=== PATIENT | female | born 1995 | race Two or more races ===

== ENCOUNTER 2024-12-26 08:43 | Emergency (ER) | payer MEDICARE, MEDICAID, SELFPAY ==
[2024-12-26] VITALS (8 sets, daily range): BP systolic 105–128; BP diastolic 52–86; PULSE 69–94; RESP 15–18; TEMP 36.4–39.4; O2SAT 96–98; BMI 41.8
--- NOTE | 2024-12-26 08:58 | XR_ITS ---
Examination: CT abdomen and pelvis without contrast. Coronal 3-D reconstructions. Sagittal 2-D reconstructions. Date and time of exam:December 26, 2024 1107 hours INDICATIONS: Left-sided abdominal pain and nausea beginning one week ago CTDI: vol (mGy): 14.6 DLP: (mGycm): 881 Technique: Axial images of the abdomen have been obtained, 3 mm slice thickness Intravenous contrast material has not been administered. Low dose protocols were performed. One or more of the following dose reduction techniques were used; automated exposure control, adjustment of the mA and/or KV according to patient size, use of iterative reconstruction technique. Findings: Hepatomegaly 21 cm with diffuse fatty infiltration throughout the liver No gallstones No splenic pancreatic or adrenal mass lesion 2 mm 1 mm lower pole left renal calculi Minimal left hydronephrosis, 8 mm proximal left ureteral calculus No bowel obstruction No pericecal inflammatory change No pelvic mass Minimal thickening urinary bladder wall Congenital fusion L2-L3 IMPRESSION: Left renal calculi Minimal left hydronephrosis, 8 mm proximal left ureteral calculus
--- NOTE | 2024-12-26 08:59 | EDNOTE_ITS ---
<Statement entered by Dionna So MD - 01/01/25 06:45> As co-signing physician, I was present and available for consult prn. I concur with the plan and care as documented by the midlevel provider. ED Abdominal Pain RME/HPI General Chief Complaint: Abdominal Pain Stated complaint: ABD PAIN X 1 WK; PAIN 9/10 Time seen by provider: 12/26/24 10:16 Arrival date/time: 12/26/24 08:43 29-year-old female with no known medical history presents to the emergency room with a chief complaint of left lower quadrant abdominal pain and tenderness x 1 week Source: patient Mode of arrival: ambulatory Limitations: no limitations Related Data Previous Rx's ?Medication ?Instructions ?Recorded acetaminophen 300 mg-codeine 15 mg 1 tab PO Q12H PRN p ain #14 tabs 01/25/24 tablet metronidazole 500 mg tablet 500 mg PO Q12H #14 tabs Allergies Allergy/AdvReac Type Severity Reaction Status Date / Time No Known Allergies Allergy Verified 12/26/24 08:46 Review of Systems Review of Systems Systems Reviewed: All systems reviewed, normal except as documented Constitutional Constitutional: Reports system reviewed and no additional complaints, except as documented, Denies fatigue, Denies fever(s), Denies headache(s) and Denies weakness Eyes Eyes: Reports system reviewed and no additional complaints, except as documented, Denies blurry vision and Denies change in vision ENT Ears, Nose, Mouth, and Throat: Reports system reviewed and no additional complaints, except as documented, Denies otalgia, Denies headache(s), Denies nasal congestion, Denies throat swelling and Denies vertigo Cardiovascular Cardiovascular: Reports system reviewed and no additional complaints, except as documented, Denies chest pain, Denies dyspnea and Denies dyspnea on exertion Respiratory Respiratory: Reports system reviewed and no additional complaints, except as documented, Denies chest congestion, Denies cough, Denies dyspnea, Denies dyspnea on exertion and Denies wheezing Gastrointestinal Gastrointestinal: Reports system reviewed and no additional complaints, except as documented, Denies abdominal pain, Denies cramping, Denies nausea and Denies vomiting Genitourinary Genitourinary: Reports system reviewed and no additional complaints, except as documented Musculoskeletal Musculoskeletal: Reports system reviewed and no additional complaints, except as documented and Denies back pain Integumentary/Breasts Skin/Breast: Reports system reviewed and no additional complaints, except as documented and Denies wounds Neurologic Neurologic: Reports system reviewed and no additional complaints, except as documented, Denies confusion, Denies headache(s), Denies lack of coordination, Denies vertigo and Denies weakness Psychiatric Psychiatric: Reports system reviewed and no additional complaints, except as documented, Denies anxiety, Denies confusion, Denies depression, Denies paranoia, Denies suicidal ideation and Denies tactile hallucinations Endocrine Endocrine: Reports system reviewed and no additional complaints, except as documented and Denies fatigue Hematologic/Lymphatic Hematologic/Lymphatic: Reports system reviewed and no additional complaints, except as documented and Denies lymphadenopathy Allergic/Immunologic Allergic/Immunologic: Reports system reviewed and no additional complaints, except as documented, Denies throat swelling, Denies urticaria and Denies wheezing ED Exam General Limitations: Present no limitations General appearance: Present alert and in no apparent distress Head Head exam: Present atraumatic Eye Eye exam: Present normal appearance, PERRL and EOMI ENT ENT exam: Present normal exam, normal oropharynx and mucous membranes moist Neck Neck exam: Present normal inspection, full ROM and trachea midline Chest Chest inspection: Present normal inspection and symmetric chest wall rise Respiratory Respiratory exam: Present normal lung sounds bilaterally Cardiovascular Cardiovascular exam: Present regular rate, normal rhythm and normal heart sounds Abdominal Exam Abdominal exam: Present soft, tenderness and normal bowel sounds; Absent Cordova's sign or tenderness at McBurney's Point Abdominal tenderness: Present LLQ and mild Extremities Exam Extremities exam: Present normal inspection and full ROM Back Exam Back exam: Present normal inspection and full ROM Neurological Exam Neurological exam: Present alert, oriented X3 and CN II-XII intact Psychiatric Psychiatric exam: Present normal affect and normal mood Skin Skin exam: Present warm, dry, intact and normal color Course Quality Measures none Orders Category Date Time Status In and Out Catheter X1 Care 12/26/24 12:44 Active Referral - Tax Manager Stat Cons 12/26/24 12:[address] abdomen pelvis wo con Stat Exams 12/26/24 08:58 Completed CBC Stat Lab 12/26/24 09:28 Completed CMP [Comprehensive Metabolic Panel] Stat Lab 12/26/24 09:28 Completed Drug Screen,Urine Stat Lab 12/26/24 09:35 Completed HCG Qualitative,Urine Stat Lab 12/26/24 09:35 Completed Lipase Stat Lab 12/26/24 09:28 Completed UA [Urinalysis] Stat Lab 12/26/24 09:35 Completed UA [Urinalysis] Stat Lab 12/26/24 13:30 Completed Urine Culture Stat Lab 12/26/24 09:35 Received HYDROcodone*/APAP 5/325 [[place] 5/325] Med 12/26/24 08:58 Discontinued 1 tab PO X1 ONE Ketorolac Inj [Toradol Inj] Med 12/26/24 12:07 Discontinued 30 mg IM X1 ONE Metoclopramide [Reglan] Med 12/26/24 12:08 Discontinued 10 mg PO X1 ONE Morphine Inj Med 12/26/24 15:03 Discontinued 4 mg IVP X1 ONE Ondansetron Inj [Zofran Inj] Med 12/26/24 15:03 Discontinued 4 mg IVP X1 ONE Ondansetron Odt [Zofran Odt] Med 12/26/24 08:58 Discontinued 4 mg PO X1 ONE Piper/Tazo 3.375 gm Premix [Zosyn] Med 12/26/24 15:03 Discontinued 3.375 gm in 50 ml IV X1 Sodium Chloride 0.9% 1000 ml [Ns] 1,000 ml Med 12/26/24 15:04 Discontinued IV 999 mls/hr mg Hyd/Al Hyd/Robin Susp [Maalox Susp] Med 12/26/24 08:58 Discontinued 30 ml PO X1 ONE Vital Signs Vital signs: Vital Signs Temperature 99.0 F 12/26/24 08:51 Pulse Rate 84 12/26/24 08:51 Respiratory Rate 16 12/26/24 08:51 Blood Pressure 122/84 12/26/24 08:51 Pulse Oximetry (%) 97 12/26/24 08:51 Oxygen Delivery Method Room Air 12/26/24 08:51 Abdominal Pain MDM MDM Narrative MDM Narrative:: 29-year-old female with no known medical history presents to the emergency room with a chief complaint of left lower quadrant abdominal pain and tenderness x 1 week Patient is hemodynamically stable and in no apparent distress. The patient is afebrile not tachycardic not tachypneic Physical examination shows left CVA tenderness with palpation. The patient also has tenderness to the left lower quadrant with palpation. There is no Cordova sign and there is negative tenderness to McBurney's point A CT of the abdomen and pelvis was completed and found an 8 mm proximal left ureteral stone. The patient has still has a urinary tract infection. I spoke to my attending physician who recommended transferring the patient for an obstructing stone. I spoke to Dr. Marroquin a urologist at [facility] who accepted the patient for transfer. I then spoke to the hospitalist Dr. Diez who will admit the patient to a [facility] bed. The patient was given antibiotics and pain medication prior to transfer I educated the patient and told her that she will be getting transferred to hospital with urology services. The patient accepted Patient data External records reviewed:: [facility] previous records Clinical information provided by:: patient Social determinants that could affect healthcare access:: none Patient has the following chronic illnesses:: No chronic illness How is presenting disease/condition affected by chronic disease/condition?: no chronic disease Evaluation data The following diagnostics were reviewed and interpreted by me:: lab results and radiology exam(s) Lab and/or radiology exams considered but not ordered:: Labs and radiology exams considered and ordered Interpretation Summary: CT abdomen and pelvis-Findings: Hepatomegaly 21 cm with diffuse fatty infiltration throughout the liver No gallstones No splenic pancreatic or adrenal mass lesion 2 mm 1 mm lower pole left renal calculi Minimal left hydronephrosis, 8 mm proximal left ureteral calculus No bowel obstruction No pericecal inflammatory change No pelvic mass Minimal thickening urinary bladder wall Congenital fusion L2-L3 IMPRESSION: Left renal calculi Minimal left hydronephrosis, 8 mm proximal left ureteral calculus Medications / Prescriptions Medications or Prescriptions considered but not ordered:: Medication given Medication administrations:: Medication Administration History Discontinued Medications Hydrocodone Bitart/Acetaminophen (Hydrocodone/Apap 5/325 Tablet) 1 tab PO X1 ONE Stop: 12/26/24 08:59 Last Admin: 12/26/24 09:42 Dose: 1 tab Documented By: Al Hydrox/Mg Hydrox/Simethicone (Mg Hyd/Al Hyd/Robin (Maalox Reg) Susp 30 Ml Udc) 30 ml PO X1 ONE Stop: 12/26/24 08:59 Last Admin: 12/26/24 09:43 Dose: 30 ml Documented By: Piperacillin/Tazobactam/Dextrose (Zosyn) 3.375 gm in 50 mls @ 100 mls/hr IV X1 ONE Stop: 12/26/24 15:32 Last Admin: 07/30/25 16:27 Dose: 100 mls/hr Documented By: DAMIAN Sodium Chloride (Ns) 1,000 mls @ 999 mls/hr IV .Q1H1M ONE Stop: 12/26/24 16:04 Last Admin: 12/26/24 16:27 Dose: 999 mls/hr Documented By: DAMIAN Ketorolac Tromethamine (Ketorolac Inj 60 Mg/2 Ml Vial) 30 mg IM X1 ONE Stop: 12/26/24 12:08 Last Admin: 12/26/24 12:19 Dose: 30 mg Documented By: Metoclopramide HCl (Metoclopramide 5 Mg Tablet) 10 mg PO X1 ONE Stop: 12/26/24 12:09 Last Admin: 12/26/24 12:20 Dose: 10 mg Documented By: Morphine Sulfate (Morphine Sulf Inj 10 Mg/Ml Vial) 4 mg IVP X1 ONE Stop: 12/26/24 15:04 Last Admin: 12/26/24 16:30 Dose: 4 mg Documented By: DAMIAN Ondansetron HCl (Ondansetron Odt 4 Mg Tabrap) 4 mg PO X1 ONE; Protocol Stop: 12/26/24 08:59 Last Admin: 12/26/24 09:18 Dose: 4 mg Documented By: Ondansetron HCl (Ondansetron Inj 2 Mg/Ml Inj 2 Ml) 4 mg IVP X1 ONE; Protocol Stop: 12/26/24 15:04 Last Admin: 12/26/24 16:30 Dose: 4 mg Documented By: DAMIAN Medication given Consultations Consultation(s) initiated? (list below): Yes Consultation #1 (Physician, Specialty, Details): Dr. Martinez urologist at [facility] Time: 16:00 Diagnosis Differential diagnosis abdominal pain: abdominal pain, acute appendicitis, constipation, gastroenteritis and small bowel obstruction Most likely diagnosis given after review of the tests above:: Urinary tract infection/ureteral calculi Admission Indicated Admission indicated?: not indicated Admission Request Was there a request for admission?: No Disposition Plan Disposition Plan: Transfer (The patient will be transferred to [facility]. The accepting urologist was and the accepting hospitalist was Dr. Hernandez) Discharge Plan Plan Patient Disposition: [facility] Facility Pt Being Transferred to: [facility] Service Needed for Transfer: Urology Prescriptions/Referrals Prescriptions/Med Rec: No Action metronidazole 500 mg tablet 500 mg PO Q12H Qty: 14 0RF acetaminophen-codeine 300-15 mg tablet 1 tab PO Q12H PRN (Reason: pain) Qty: 14 0RF Referrals: Tracey Abel PA-C [Primary Care Provider] - In 1 week Problem List Clinical Impression: Calculus of proximal left ureter, Urinary tract infection, Hydronephrosis Patient/Caregiver Discharge Instructions Education Materials: ED CYSTITIS Female Adult Print Language: Kiswahili Stand Alone Forms: Mariola Award Info., Patient Portal Info Letter
[2024-12-26] MEDS: ONDANSETRON ODT 4 MG TABRAP PO (09:18)
[2024-12-26 09:37] LABS: Basophils # (Auto) 0.0 Thou/mm3 (0.0-0.2); Basophils % (Auto) 0 % (0-2.5); Eosinophils # (Auto) 0.1 Thou/mm3 (0.0-0.5); Eosinophils % (Auto) 1 % (0-10); Hematocrit 41.2 % (36.0-46.0); Hemoglobin 14.3 g/dL (12.0-16.0); Immature Granulocytes Auto 0.06 Thou/mm3 (0.00-0.00); Lymphocytes # (Auto) 1.5 Thou/mm3 (1.0-4.8); Lymphocytes % (Auto) 11 % (10-50); Mean Corpuscular HGB Conc 34.7 g/dl (31.0-37.0); Mean Corpuscular Hemoglobin 28.9 pg (25.0-35.0); Mean Corpuscular Volume 83 fL (80-100); Monocytes # (Auto) 0.4 Thou/mm3 (0.0-0.8); Monocytes % (Auto) 3 % (0-12); Neutrophils # (Auto) 11.1 Thou/mm3 (1.8-7.7); Neutrophils % (Auto) 84 % (37-80); Nucleated Red Blood Cell # 0.00 Thou/mm3 (0.00-0.00); Nucleated Red Blood Cell % 0 /100 WBC (0); Platelet Count 233 Thou/mm3 (140-440); RDW Standard Deviation 38.1 fL (36.4-46.3); Red Blood Count 4.94 Miln/mm3 (4.00-5.20); White Blood Count 13.3 Thou/mm3 (3.6-11.0)
[2024-12-26] MEDS: HYDROcodone/APAP 5/325 TABLET 1 TAB PO (09:42)
[2024-12-26] MEDS: MG HYD/AL HYD/SIME (Maalox Reg) SUSP 30 ML UDC PO (09:43)
[2024-12-26 09:52] LABS: Alanine Aminotransferase 26 U/L (10-49); Albumin, Serum 4.5 gm/dL (3.5-5.0); Albumin/Globulin Ratio 1.6 (1.2-2.2); Alkaline Phosphatase 94 U/L (46-116); Anion Gap 9 (7-16); Aspartate Amino Transferase 27 U/L (0-34); BUN/Creatinine Ratio 10 Ratio (12-20); Bilirubin,Total 0.6 mg/dL (0.3-1.2); Blood Urea Nitrogen 8 mg/dL (9-23); Calcium 9.1 mg/dL (8.3-10.6); Calcium (Corrected) 9.1 mg/dL (8.5-10.1); Carbon Dioxide 27.7 mMol/L (20.0-31.0); Chloride 105 mMol/L (98-107); Creatinine (Component) 0.8 mg/dL (0.6-1.3); Estimated Creatinine Clearance 124.0 mL/min (>60); Globulin 2.8 gm/dL (2.3-3.5); Glucose 103 mg/dL (74-106); Lipase 24 U/L (12-53); Osmolality,Calculated 281 (275-295); Potassium 4.1 mMol/L (3.4-5.1); Sodium 142 mMol/L (136-145); Total Protein 7.3 gm/dL (5.7-8.2); eGFR > 60 See Note
[2024-12-26 09:52] LABS: Collection Type, Urine Clean Catch
[2024-12-26 10:12] LABS: Bacteria,Urine 4+; Bilirubin,Urine Negative (Negative); Blood,Urine 3+ (Negative); Clarity,Urine Turbid (Clear/Hazy); Color,Urine Yellow (Lt Yel-Yel); Glucose, Urine Negative (Negative); Ketones,Urine Negative (Negative); Leukocyte Esterase,Urine Positive (Negative); Nitrite,Urine Positive (Negative); PH,Urine 5.5 (5.0-7.0); Protein,Urine 1+ (Neg - Trace); RBC,Urine 48 /hpf (0-3); Specific Gravity,Urine 1.031 (1.001-1.035); Squamous Epithelial Cell,Urine 29 /hpf (0-5); Urobilinogen,Urine Negative mg/dL (0.0-1.0); WBC,Urine 62 /hpf (0-5)
[2024-12-26 10:14] LABS: Amphetamine/Methamp Scrn,U Negative (Negative); Barbiturate Screen,Urine Negative (Negative); Benzodiazepines Screen,Urine Negative (Negative); Benzoylecgonine Screen, Ur Negative (Negative); Budding Yeast,Urine Absent; Fentanyl Screen,Urine Negative (Negative); Opiate Screen,Urine Negative (Negative); THC Screen,Urine Negative (Negative)
[2024-12-26 10:54] LABS: HCG Qualitative,Urine Negative
[2024-12-26] MEDS: KETOROLAC INJ 60 MG/2 ML VIAL 30 MG IM (12:19)
[2024-12-26] MEDS: METOCLOPRAMIDE 5 MG TABLET 10 MG PO (12:20)
--- NOTE | 2024-12-26 12:41 | PC.CM ---
Addendum entered by Yazmin Tarango RN 12/26/24 20:01: Patient accepted to [facility] Patient will go to room [address] 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 I handed packet to ED charge nurse. Addendum entered by Yazmin Tarango RN 12/26/24 16:37: I received a call from Jono transfer nurse with [facility] in [place]. She states DR. Zaire Martinez urologist has accepted patient. Jono states she will reach out to a hospitalist to have them accept patient. She states once they do that then they can look for a bed. She states she will call me once that happens. Packet started and CD made. Addendum entered by Yazmin Tarango RN 12/26/24 15:17: 1515 I received a call back from Alondra rehman with [facility] [phone]. I provided her with a detailed report. She was going to provide information to her urologist and then get back to me. Addendum entered by Yazmin Tarango RN 12/26/24 15:05: 1450 I called and initiated transfer with [facility]. I spoke to transfer nurse Jono and I faxed over information. Jono wanted to speak to Bhanu so I conference called and they spoke to each other. Addendum entered by Yazmin Tarango RN 12/26/24 14:49: 1420 I spoke to Valerie at [facility] and presented information on patient. She states she will have a nurse call me back for more detailed information. Addendum entered by Yazmin Tarango RN 12/26/24 14:44: 1400 [facility] called me and they declined patient due to capacity. I faxed information to [facility]. Addendum entered by Yazmin Tarango RN 12/26/24 13:13: I contacted [facility] and I spoke to Brittney. I faxed over information. Original Note: 1203 I received a referral to transfer patient for obstructing 8mm urethal stone. Patient needs urology.
[2024-12-26 13:35] LABS: Collection Type, Urine Catheter
[2024-12-26 13:45] LABS: Bacteria,Urine 4+; Bilirubin,Urine Negative (Negative); Blood,Urine 3+ (Negative); Clarity,Urine Turbid (Clear/Hazy); Color,Urine Yellow (Lt Yel-Yel); Glucose, Urine Negative (Negative); Ketones,Urine Negative (Negative); Leukocyte Esterase,Urine Positive (Negative); Nitrite,Urine Positive (Negative); PH,Urine 6.0 (5.0-7.0); Protein,Urine 1+ (Neg - Trace); RBC,Urine 17 /hpf (0-3); Specific Gravity,Urine 1.032 (1.001-1.035); Squamous Epithelial Cell,Urine 5 /hpf (0-5); Urobilinogen,Urine Negative mg/dL (0.0-1.0); WBC,Urine 56 /hpf (0-5)
[2024-12-26] MEDS: SODIUM CHLORIDE 0.9% 1000 ML 1,000 ML 999 ML IV (16:27)
[2024-12-26] MEDS: PIPER/TAZO 3.375 GM PREMIX 3.375 GM/50 ML BAG IV (16:27)
[2024-12-26] MEDS: MORPHINE SULF INJ 10 MG/ML VIAL 4 MG IVP (16:30)
[2024-12-26] MEDS: ONDANSETRON INJ 2 MG/ML INJ 2 ML 4 MG IVP (16:30)
[2024-12-26] MEDS: ACETAMINOPHEN 325 MG TABLET 650 MG PO (21:31)
--- NOTE | 2025-01-25 17:14 | PD.ADDPROG ---
Addendum Progress Note Addendum Date of report being addended: 12/25/24 Narrative: An In-N-Out catheter procedure was ordered completed by the nurse on 12/25/2024 for the patient
== END 2024-12-26 21:35 | disposition short-term general hospital (02) ==
PROVIDERS: Nurse Practitioner Family; Emergency Provider Emergency Medicine; PCP Physician Assistant
DX: N13.6 Pyonephrosis (principal); Z75.1 Person awaiting admission to adequate facility elsewhere
CPT/HCPCS: 51701; 36415; 74176; 80053; 80307; 81001; 81025; 83690; 85025; 87077; 87086; 87186; 96365; 96372; 96375; 99283; J1885; J2270; J2405; J2543; J7030; Q0162; A9270

== ENCOUNTER 2025-02-27 05:37 | Emergency (ER) | payer MEDICARE, MEDICAID, SELFPAY ==
[2025-02-27 05:37] VITALS: BP 119/80; PULSE 74; RESP 18; TEMP 37; O2SAT 98
[2025-02-27 06:14] VITALS: BMI 38.5
[2025-02-27 06:17] VITALS: BP 119/67; PULSE 65; RESP 19; TEMP 36.3; O2SAT 95
--- NOTE | 2025-02-27 06:57 | EDNOTE_ITS ---
ED Abdominal Pain RME/HPI General Chief Complaint: Abdominal Pain Stated complaint: LEFT FLANK PAIN Time seen by provider: 02/27/25 06:12 Arrival date/time: 02/27/25 05:37 Source: patient Limitations: no limitations RME / HPI RME / HPI narrative: 29-year-old female here for evaluation of left flank pain that onset about 4:00 this morning. States that she has a history of kidney stones and ureteral stent. Had procedure 2 days ago by urology for lithotripsy and replacement of ureteral stent. Was doing well up until 4:00 this morning when onset with severe 10 out of 10 pain. Took one of her [place] at home and came in for evaluation. Pain is currently 4 out of 10. Some nausea, no vomiting, no fever, no other acute symptoms at this time. Related Data Previous Rx's ?Medication ?Instructions ?Recorded acetaminophen 300 mg-codeine 15 mg 1 tab PO Q12H PRN p ain #14 tabs 01/25/24 tablet metronidazole 500 mg tablet 500 mg PO Q12H #14 tabs Allergies Allergy/AdvReac Type Severity Reaction Status Date / Time No Known Allergies Allergy Verified 12/26/24 08:46 Review of Systems Review of Systems Systems Reviewed: All systems reviewed, normal except as documented Past Medical History Past Medical History Comments PMH COMMENT: History of kidney stones and ureteral stent ED Exam Narrative Physical exam: Constitutional: Awake, alert, obese, nontoxic, no acute distress HEENT: Normocephalic, atraumatic CV: Regular rate and rhythm, no murmurs/rubs/gallops Lungs: Clear to auscultation BL, no respiratory distress. Abd: Soft, mild tenderness to palpation of left flank and upper abdomen. No rebound or guarding noted. Extremities: Mild pain to palpation of left CVA region Skin: Warm, dry, intact General Limitations: Present no limitations Course Course Course Narrative: 1145h: Patient is feeling much improved at this time. Stent appears to be in place on CT with no ureteral stones noted. No additional symptoms. Workup generally unremarkable. Is okay for discharge at this time to follow-up with urology outpatient. Quality Measures none Orders Category Date Time Status Insert IV NOW Care 02/27/25 06:[address] abdomen pelvis wo con Stat Exams 02/27/25 06:55 Completed BMP [Basic Metabolic Panel] Stat Lab 02/27/25 07:35 Completed CBC Stat Lab 02/27/25 07:35 Completed HCG,Qualitative Serum Stat Lab 02/27/25 07:35 Completed Urinalysis Stat Lab 02/27/25 07:23 Ordered Ketorolac Inj [Toradol Inj] Med 02/27/25 06:55 Discontinued 30 mg IVP X1 ONE Morphine* Inj Med 02/27/25 10:15 Discontinued 4 mg IVP X1 ONE Ondansetron Inj [Zofran Inj] Med 02/27/25 06:55 Discontinued 4 mg IVP X1 ONE Vital Signs Vital signs: Vital Signs Temperature 98.6 F 02/27/25 05:37 Pulse Rate 74 02/27/25 05:37 Respiratory Rate 18 02/27/25 05:37 Blood Pressure 119/80 02/27/25 05:37 Pulse Oximetry (%) 98 02/27/25 05:37 Oxygen Delivery Method Room Air 02/27/25 05:37 Abdominal Pain MDM Patient data External records reviewed:: [facility] previous records Clinical information provided by:: patient Social determinants that could affect healthcare access:: none Patient has the following chronic illnesses:: nil How is presenting disease/condition affected by chronic disease/condition?: no chronic disease Evaluation data The following diagnostics were reviewed and interpreted by me:: lab results and radiology exam(s) Lab and/or radiology exams considered but not ordered:: none Interpretation Summary: Laboratory Results WBC 11.1 Thou/mm3 (3.6-11.0) H 02/27/25 07:35 RBC 4.57 Miln/mm3 (4.00-5.20) 02/27/25 07:35 Hgb 13.1 g/dL (12.0-16.0) 02/27/25 07:35 Hct 39.2 % (36.0-46.0) 02/27/25 07:35 MCV 86 fL (80-100) 02/27/25 07:35 MCH 28.7 pg (25.0-35.0) 02/27/25 07:35 MCHC 33.4 g/dl (31.0-37.0) 02/27/25 07:35 RDW Std Deviation 38.7 fL (36.4-46.3) 02/27/25 07:35 Plt Count 251 Thou/mm3 (140-440) 02/27/25 07:35 Neut % (Auto) 72 % (37-80) 02/27/25 07:35 Lymph % (Auto) 19 % (10-50) 02/27/25 07:35 [place] % (Auto) 7 % (0-12) 02/27/25 07:35 Eos % (Auto) 1 % (0-10) 02/27/25 07:35 Baso % (Auto) 0 % (0-2.5) 02/27/25 07:35 Neut # (Auto) 8.0 Thou/mm3 (1.8-7.7) H 02/27/25 07:35 Lymph # (Auto) 2.1 Thou/mm3 (1.0-4.8) 02/27/25 07:35 [place]ift # (Auto) 0.8 Thou/mm3 (0.0-0.8) 02/27/25 07:35 Eos # (Auto) 0.1 Thou/mm3 (0.0-0.5) 02/27/25 07:35 Baso # (Auto) 0.0 Thou/mm3 (0.0-0.2) 02/27/25 07:35 Immature Gran # (Auto) 0.04 Thou/mm3 (0.00-0.00) H 02/27/25 07:35 Absolute Nucleated RBC 0.00 Thou/mm3 (0.00-0.00) 02/27/25 07:35 Immature Gran % 0 % (0-0) 02/27/25 07:35 Nucleated RBC % 0 /100 WBC (0) 02/27/25 07:35 Sodium 141 mMol/L (136-145) 02/27/25 07:35 Potassium 3.6 mMol/L (3.4-5.1) 02/27/25 07:35 Chloride 104 mMol/L (98-107) 02/27/25 07:35 Carbon Dioxide 28.5 mMol/L (20.0-31.0) 02/27/25 07:35 Anion Gap 9 (7-16) 02/27/25 07:35 BUN 11 mg/dL (9-23) 02/27/25 07:35 Creatinine 0.8 mg/dL (0.6-1.3) 02/27/25 07:35 Estim Creat Clear Calc 127.1 mL/min (>60) 02/27/25 07:35 eGFR > 60 See Note (60-) 02/27/25 07:35 BUN/Creatinine Ratio 14 Ratio (12-20) 02/27/25 07:35 Glucose 85 mg/dL (74-106) 02/27/25 07:35 Calculated Osmolality 279 (275-295) 02/27/25 07:35 Calcium 9.4 mg/dL (8.3-10.6) 02/27/25 07:35 HCG, Qual Negative 02/27/25 07:35 Examination: CT abdomen and pelvis without contrast. Coronal 3-D reconstructions. Sagittal 2-D reconstructions. Date and time of exam:February 27, 2025 0943 hours, comparison December 26, 2024 INDICATIONS: Left-sided flank pain with nausea today, history left renal calculi, 8mm left ureteral calculus on CT stone study December 26, 2024 CTDI: vol (mGy): 14.4 DLP: (mGycm): 878 Technique: Axial images of the abdomen have been obtained, 3 mm slice thickness Intravenous contrast material has not been administered. Low dose protocols were performed. One or more of the following dose reduction techniques were used; automated exposure control, adjustment of the mA and/or KV according to patient size, use of iterative reconstruction technique. Findings: Diffuse fatty infiltration throughout the liver No visualized liver or splenic lesion No gallstones No pancreatic or adrenal mass Multiple left renal calculi, the largest 4 mm Mild left hydronephrosis Left ureteral stent satisfactory position No bowel obstruction Aorta normal size No pericecal inflammatory change Tiny air droplet in the urinary bladder IMPRESSION: Multiple left renal calculi Mild left hydronephrosis Left ureteral stent satisfactory position Medications / Prescriptions Medications or Prescriptions considered but not ordered:: none Medication administrations:: Medication Administration History Discontinued Medications Ketorolac Tromethamine (Ketorolac Inj 30 Mg/Ml Vial) 30 mg IVP X1 ONE Stop: 02/27/25 06:56 Last Admin: 02/27/25 07:21 Dose: 30 mg Documented By: BY Morphine Sulfate (Morphine Sulf Inj 4 Mg/Ml Vial) 4 mg IVP X1 ONE Stop: 02/27/25 10:16 Last Admin: 02/27/25 10:24 Dose: 4 mg Documented By: DB Ondansetron HCl (Ondansetron Inj 2 Mg/Ml Inj 2 Ml) 4 mg IVP X1 ONE; Protocol Stop: 02/27/25 06:56 Last Admin: 02/27/25 07:20 Dose: 4 mg Documented By: BY as above Consultations Consultation(s) initiated? (list below): No Diagnosis Differential diagnosis abdominal pain: abdominal pain, calculus of kidney, constipation and diverticulitis Most likely diagnosis given after review of the tests above:: Ureteral stent in place, left flank pain Admission Indicated Admission indicated?: not indicated Admission Request Was there a request for admission?: No Disposition Plan Disposition Plan: Discharge Discharge Attestation Discharge Attestation: The patient and all family members were given an opportunity to ask questions and understood the discharge instructions. Discharge instructions specifically effects, indications for sooner follow up or return to the emergency department, and the expected course of current diagnosis. Patient condition: Stable Discharge Plan Plan Patient Disposition: HOME (Self Care) Patient condition on transfer: Stable Prescriptions/Referrals Prescriptions/Med Rec: No Action metronidazole 500 mg tablet 500 mg PO Q12H Qty: 14 0RF acetaminophen-codeine 300-15 mg tablet 1 tab PO Q12H PRN (Reason: pain) Qty: 14 0RF Referrals: Tracey Abel PA-C [Primary Care Provider, Family Practice] - In 1 week Problem List Clinical Impression: Flank pain, left side, S/P ureteral stent placement Patient/Caregiver Discharge Instructions Education Materials: Abdominal Pain Additional Instructions: Some general health principles that can help you are the [employer] principles: Nutrition (eat a plant-based diet, avoiding meats in general, avoiding highly processed foods) Exercise (Daily exercise/walks as tolerated) Water (Drink adequate fresh water to maintain hydration, concentrating on water rather than on soda, coffee, tea, juice, etc for hydration) [place] (Spend time - 15-20 minutes or so with skin exposed in the geophysicist and late evening sun for Vitamin D health benefits) [place] (Avoid alcohol, illicit drugs, caffeinated beverages, smoking, etc) Air (Deep breathing exercises in the early mornings in fresh air) Rest (Adequate rest at night, going to bed a few hours before midnight and avoiding all screens/television/loud music in the time right before going to bed, also avoiding heavy meals just prior to going to bed) Trust in God (Spend time daily in Bible study and prayer - health benefits in contemplation of God's true character) Additional resources that can benefit: [email or web address], look under resources and seminars. Print Language: [place]raini Stand Alone Forms: Mariola Award Info., Patient Portal Info Letter
[2025-02-27] MEDS: ONDANSETRON INJ 2 MG/ML INJ 2 ML 4 MG IVP (07:20)
[2025-02-27] MEDS: KETOROLAC INJ 30 MG/ML VIAL IVP (07:21)
[2025-02-27 07:26] VITALS: BP 131/76; PULSE 66; RESP 16; TEMP 36.8; O2SAT 96
[2025-02-27 08:38] LABS: Basophils # (Auto) 0.0 Thou/mm3 (0.0-0.2); Basophils % (Auto) 0 % (0-2.5); Eosinophils # (Auto) 0.1 Thou/mm3 (0.0-0.5); Eosinophils % (Auto) 1 % (0-10); Hematocrit 39.2 % (36.0-46.0); Hemoglobin 13.1 g/dL (12.0-16.0); Immature Granulocytes Auto 0.04 Thou/mm3 (0.00-0.00); Lymphocytes # (Auto) 2.1 Thou/mm3 (1.0-4.8); Lymphocytes % (Auto) 19 % (10-50); Mean Corpuscular HGB Conc 33.4 g/dl (31.0-37.0); Mean Corpuscular Hemoglobin 28.7 pg (25.0-35.0); Mean Corpuscular Volume 86 fL (80-100); Monocytes # (Auto) 0.8 Thou/mm3 (0.0-0.8); Monocytes % (Auto) 7 % (0-12); Neutrophils # (Auto) 8.0 Thou/mm3 (1.8-7.7); Neutrophils % (Auto) 72 % (37-80); Nucleated Red Blood Cell # 0.00 Thou/mm3 (0.00-0.00); Nucleated Red Blood Cell % 0 /100 WBC (0); Platelet Count 251 Thou/mm3 (140-440); RDW Standard Deviation 38.7 fL (36.4-46.3); Red Blood Count 4.57 Miln/mm3 (4.00-5.20); White Blood Count 11.1 Thou/mm3 (3.6-11.0)
[2025-02-27 08:54] LABS: Anion Gap 9 (7-16); BUN/Creatinine Ratio 14 Ratio (12-20); Blood Urea Nitrogen 11 mg/dL (9-23); Calcium 9.4 mg/dL (8.3-10.6); Carbon Dioxide 28.5 mMol/L (20.0-31.0); Chloride 104 mMol/L (98-107); Creatinine (Component) 0.8 mg/dL (0.6-1.3); Estimated Creatinine Clearance 127.1 mL/min (>60); Glucose 85 mg/dL (74-106); Osmolality,Calculated 279 (275-295); Potassium 3.6 mMol/L (3.4-5.1); Sodium 141 mMol/L (136-145); eGFR > 60 See Note
[2025-02-27 09:07] LABS: HCG,Qualitative Serum Negative
[2025-02-27] MEDS: MORPHINE SULF INJ 4 MG/ML VIAL IVP (10:24)
[2025-02-27 12:04] VITALS: BP 139/98; PULSE 66; RESP 16; TEMP 36.7; O2SAT 99
== END 2025-02-27 12:04 | disposition home or self-care (01) ==
PROVIDERS: Emergency Provider Family Medicine; PCP Physician Assistant
DX: N13.2 Hydronephrosis with renal and ureteral calculous obstruction (principal); Z96.0 Presence of urogenital implants
CPT/HCPCS: 36415; 74176; 80048; 81001; 84703; 85025; 96374; 96375; 99284; J1885; J2270; J2405